=== PATIENT | female | born 1955 | race Caucasian/White ===

== ENCOUNTER 2019-05-21 11:22 | Day surgery (SDC) | payer OTHER ==
--- NOTE | 2019-05-17 11:23 | HP ---
She is scheduled for surgery on 05/21/2019. HISTORY OF PRESENT ILLNESS: Ms. Noel is a 63-year-old white female with history of previous hysterectomy, who is having issues with vaginal bulge and difficulty with stool evacuation. She is having the splint to have some of her stool removed. She does also have some overactive bladder symptomatology, which she was assessed for and was initiated on VESIcare for overactive bladder symptoms. Otherwise, she has no significant stress incontinence issues. Her main complaint is feeling something bulging in the vagina and at times needing the splint to help get her stool out. PAST MEDICAL HISTORY: Hypothyroidism, hyperlipidemia, diabetes, and osteoporosis. PAST SURGICAL HISTORY: Cholecystectomy, tonsillectomy, arthroscopy of the knee and hysterectomy total in 1996. FAMILY HISTORY: Mother with lymphoma history and heart disease. Father with diabetes. CURRENT MEDICATIONS: 1. Alendronate 70 mg tablet daily. 2. Atorvastatin 10 mg tablet daily. 3. Januvia 100 mg tablet daily. 4. Levothyroxine 125 mcg tablet daily. 5. Losartan 100 mg tablet daily. 6. Metformin 500 mg extended release daily. 7. Toprol 25 mg daily. 8. VESIcare 5 mg tablet daily. ALLERGIES: SHE HAS ALLERGY TO ERYTHROMYCIN BASE. SOCIAL HISTORY: Nonsmoker. No excessive alcohol use. OB HISTORY: G2, P2, two vaginal deliveries. PHYSICAL EXAMINATION: VITAL SIGNS: Her height was 5 feet 5 inches, weight 211 with a BMI of 35. Blood pressure 126/86, pulse 86, respirations 18, and O2 saturation on room air 98%. HEENT: Within normal limits. CHEST: Clear to auscultation. HEART: Regular rate and rhythm. S1 and S2 heart sounds. No murmurs, rubs, or gallops. ABDOMEN: Soft, nontender, and nondistended with no palpable masses. PELVIC: Vulva had no lesions. Bladder and urethral area had no lesions. There was a grade 1 to 2 cystocele. There was a large grade 3 rectocele. Cervix and uterus were surgically absent. There were no pelvic masses appreciated. ASSESSMENT: This is a 63-year-old white female with grade 3 rectocele, grade 1 to 2 cystocele and also some overactive bladder symptomatology. PLAN: To proceed with posterior repair. We will assess the anterior vaginal prolapse while the patient is asleep and whether anterior repair is indicated at the time of surgery. Risks and benefits of procedure, I have discussed in detail. She is set for surgery on 05/21/2019. Job ID: [id number]
[2019-05-17 16:20] LABS: Hemoglobin 11.9 g/dL (12.0-16.0); Mean Corpuscular HGB CONC 34.5 g/dL (32.0-36.0); Mean Corpuscular Hemoglobin 30.5 pg (27.0-31.0); Mean Corpuscular Volume 88.5 fL (78.0-98.0); Platelet Count 273 thou/uL (130-400); RBC Distribution Width 11.4 % (11.5-14.5); Red Blood Cell (RBC) Count 3.91 mill/uL (4.20-5.40); White Blood Cell (WBC) Count 6.4 thou/uL (4.8-10.8)
[~2019-05-21 11:22] MED LIST: Dexamethasone 20 MG/5 ML VIAL ONE; Glycopyrrolate 0.2 MG/ML 5 ML SYRINGE ONE; Lidocaine 1% PF 5 ML VIAL ONE; Ondansetron PF 4 MG/2 ML Vial ONE; PROPOFOL 200 MG/20 ML VIAL ONE; Rocuronium Bromide 10 MG/ML (10ML VIAL) ONE; ePHEDrine/0.9% NaCl/PF SYRINGE 50 mg/10 ml ONE
[2019-05-21] MEDS ORDERED: Lidocaine 1% w/Epinephrine 1:100K 20 ML VIAL ONE (11:57)
[2019-05-21] MEDS ORDERED: Fentanyl 100 MCG/2 ML VIAL ONE ×2 (12:33→14:10)
[2019-05-21] MEDS ORDERED: Ondansetron PF 4 MG/2 ML Vial IVP PRN (13:52)
[2019-05-21] MEDS ORDERED: Promethazine HCl 25 MG/ML VIAL IM PRN (13:52)
[2019-05-21] MEDS ORDERED: Morphine 2 MG/ML SYRINGE SLOW IVP PRN (13:52)
[2019-05-21] MEDS ORDERED: traMADol HCl 50 MG TAB PO PRN ×2 (13:52)
[2019-05-21] MEDS ORDERED: diphenhydrAMINE 25 MG CAP PO PRN (13:52)
[2019-05-21] MEDS ORDERED: Bisacodyl 10 MG SUPP PR PRN (13:52)
[2019-05-21] MEDS ORDERED: Simethicone Chewable 80 MG TAB PO PRN (13:52)
[2019-05-21] MEDS ORDERED: Zolpidem Tartrate 5 MG TAB PO PRN (13:52)
[2019-05-21] MEDS ORDERED: Dextrose 50% Abboject 50 ML SYRINGE SLOW IVP PRN (13:52)
[2019-05-21] MEDS ORDERED: HumaLOG 300 UNITS/3 ML VIAL SC PRN (13:52)
[2019-05-21] MEDS ORDERED: Dextrose 5% in Water 1,000 ML IV PRN (13:52)
[2019-05-21] MEDS: Acetaminophen 1,000 MG in Premix Bag 1 BAG IVPB SCH (18:51)
[2019-05-21] MEDS ORDERED: metFORMIN 500 MG TAB PO SCH (21:00)
--- NOTE | 2019-05-21 23:13 | OP ---
DATE OF PROCEDURE: 05/21/2019 PREOPERATIVE DIAGNOSIS: A 63-year-old white female with prior hysterectomy with grade 3 symptomatic rectocele. POSTOPERATIVE DIAGNOSIS: A 63-year-old white female with prior hysterectomy with grade 3 symptomatic rectocele. PROCEDURE PERFORMED: Posterior repair. GENERAL LITHOGRAPHIC WORKER SURGEON: DAYA Aquino. ANESTHESIA: General endotracheal. ESTIMATED BLOOD LOSS: 25 mL. COMPLICATIONS: None. PATHOLOGY: None. ANTIBIOTICS: 2 g Ancef, on-call to OR. FINDINGS: 1. The patient is status post previous hysterectomy. She has a large grade 2 rectocele status post repair. 2. Minimal cystocele noted. 3. Post procedure rectal exam with no evidence of inadvertent stitches placed in the rectal mucosa. DISPOSITION: Recovery room. DESCRIPTION OF OPERATIVE PROCEDURE: The patient previously received informed consent in regard to surgery. She was taken back to the operating room, where she received a general endotracheal anesthetic agent without complications. She was placed in the dorsal lithotomy position with Karthikeyan stirrups and prepped and draped in the usual sterile fashion. Cagle catheter was placed at this time. Exam under anesthesia was performed with the previously mentioned findings. At this time, 2 Allis clamps were placed in the vaginal introitus at the 4 and 8 o'clock positions. The posterior vaginal mucosa was infiltrated with 1% lidocaine with epinephrine up to the vaginal cuff line. A midline incision in the posterior vaginal mucosa at the perineum and introitus margin was made with Metzenbaum scissors. This was extended up to the vaginal cuff line under the mucosa with Metzenbaum scissors. The edges of the vaginal mucosa were grasped on each side with Allis clamps, it progressively worked our way up the vaginal wall. The rectocele was then dissected both sharply and bluntly reducing the rectocele defect. There were 2 horizontal tears in the area of the endopelvic fascia and these were grasped with Allis clamps. The apex of the vaginal mucosa was tagged with a 2-0 Vicryl suture. Higher up in the endopelvic fascia and the sidewalls, the endopelvic fascial lines were dissected and grasped most cephalad with Allis clamps. We then plicated this pelvic fascia with [id number] stitches of 0 Vicryl. We continued to work down towards the vaginal introitus opening incorporating the pelvic fascia in the midline and also joining together the previous divided fascial defects that had been tagged with Allis clamps. Once the endopelvic fascia was brought altogether, the hernia was repaired. The excess vaginal mucosa was turned on each side. We then closed the posterior vaginal mucosa with 2-0 interrupted Vicryl sutures in [id number] stitch fashion. Incorporating some of the endopelvic fascia during space. The posterior vaginal mucosa was noted to be hemostatic. Rectal exam was confirmed. No evidence of inadvertent suture placed in the rectal mucosa was noted. A moistened Kerlix was then packed in the vaginal vault for pressure dressing. The patient was awakened from anesthesia, transferred to her room in stable condition. Job ID: [id number]
[2019-05-22] MEDS: Acetaminophen 1,000 MG in Premix Bag 1 BAG IVPB SCH ×2 (00:10→05:45)
[2019-05-22 05:08] LABS: Hemoglobin 10.9 g/dL (12.0-16.0); Mean Corpuscular Hemoglobin 30.4 pg (27.0-31.0); Mean Corpuscular Volume 89.4 fL (78.0-98.0); Mean Platelet Volume 7.8 fL (7.4-10.4); Platelet Count 231 thou/uL (130-400); RBC Distribution Width 11.2 % (11.5-14.5); White Blood Cell (WBC) Count 9.8 thou/uL (4.8-10.8)
[2019-05-22] MEDS ORDERED: Levothyroxine Sodium 50 MCG TAB PO SCH (06:00)
[2019-05-22] MEDS ORDERED: Calcium Carbonate + Vit D 1 TAB PO SCH (08:00)
--- NOTE | 2019-05-22 08:02 | PDOC.EVN ---
Event Note - Event Note Event Note: Tolerating diet. Vag pack removed along with recinos. No excessive pain. O:[id number].P75 R16 131,72 perineum:dry. A/P...Post op day1...Posterior repair. Doing well. D/c home today. F/u as scheduled.
[2019-05-22 08:14] VITALS: BP 131/75; TEMP 97.8
[2019-05-22] MEDS ORDERED: Metoprolol Tartrate 25 MG TAB PO SCH (09:00)
[2019-05-22] MEDS ORDERED: Aspirin 81 mg Enteric Coated Tablet PO SCH (09:00)
[2019-05-22] MEDS ORDERED: Multivit, Therapeutic 1 TAB PO SCH (09:00)
[2019-05-22] MEDS ORDERED: Ascorbic Acid 500 mg Chewable Tablet PO SCH (09:00)
== END 2019-05-22 09:35 | disposition home or self-care (01) ==
LOC: SDC 11:22 → 3SE 13:52 → SDC 05-22 09:35
PROVIDERS: ATTEND Obstetrics & Gynecology
PROC: 0JQC0ZZ Repair Pelvic Region Subcutaneous Tissue and Fascia, Open Approach (ICD-10-PCS; principal; 2019-05-22)
DX: N81.6 Rectocele (principal); N81.10 Cystocele, unspecified; E03.9 Hypothyroidism, unspecified; E78.5 Hyperlipidemia, unspecified; E11.9 Type 2 diabetes mellitus without complications; I10 Essential (primary) hypertension; M81.0 Age-related osteoporosis without current pathological fracture; Z79.84 Long term (current) use of oral hypoglycemic drugs; Z79.899 Other long term (current) drug therapy; Z88.1 Allergy status to other antibiotic agents; Z90.710 Acquired absence of both cervix and uterus
CPT/HCPCS: 36415; 36416; 85027; 86850; 86900; 86901; J0131; J0690; J1100; J2001; J2405; J2704; J3010